=== PATIENT | male | born 1975 | race Caucasian/White ===

== ENCOUNTER 2022-07-01 11:12 | Emergency (ER) | payer MEDICAID, SELFPAY ==
--- NOTE | ~2022-07-01 | XR_ITS ---
EXAMINATION: XR RIBS, RIGHT CLINICAL INFORMATION: Injury rule out fracture. COMPARISON: None available. TECHNIQUE: 6 views of the right ribs were obtained. FINDINGS: The lungs are well-expanded with dense opacities in both lung bases likely scarring. No consolidation, pneumothorax, or pleural effusion. The cardiomediastinal silhouette and pulmonary vasculature are normal. Osseous structures are unremarkable. Multiple views of bilateral ribs reveal no visible fracture or rib abnormality. XR/XR ribs RT min 3V w CXR1V IMPRESSION: 1. Focal dense opacity in both lower lobes likely scarring or overlapping shadows. No visible rib fracture seen.
[2022-07-01 11:27] VITALS: BP 148/79; PULSE 94; RESP 16; TEMP 36.6; O2SAT 100; BMI 23.5
--- NOTE | 2022-07-01 12:00 | ED_ITS ---
HPI - General Adult General Chief complaint: General Medical Stated complaint: Possible broken rib Time Seen by Provider: 07/01/22 11:27 History of Present Illness HPI narrative: patient complains of right-sided rib pain which is from injury of work when he was reaching for a box high up on a shelf and leaning his right ribs against the shelf and then as he pulled the box towards him he felt a pop in the chest wall in the right ribs and it is painful, no difficulty breathing no other injury no other complaints, no abdominal pain no nausea or vomiting Related Data Previous Rx's Medication Instructions Recorded acetaminophen 500 mg capsule 1,000 mg PO TID PRN pain #30 caps 07/01/22 ibuprofen 600 mg tablet 600 mg PO Q6H PRN pain #20 tabs 07/01/22 Allergies Allergy/AdvReac Type Severity Reaction Status Date / Time Penicillins Allergy Unknown Verified 07/01/22 11:27 [facility] Past Medical History Source: nursing notes reviewed Medical History (Updated 07/02/22 @ 00:01 by Paulie Sahni) Substance use disorder Social History Social History Alcohol intake: never Smoked in Last 30 Days: Yes Use of substances other than those prescribed or required for medical reasons: Yes Substance Use Type: Marijuana Advance Directives: No Advance Directives Information Provided: Yes Physical Exam ED Vital Signs: Vital Signs - 24 hr 07/01/22 14:33 Temperature 98.0 F Pulse Rate 68 Respiratory Rate 18 Blood Pressure 151/90 H Pulse Oximetry 99 Oxygen Delivery Method Room Air BMI result Body Mass Index 23.5 General appearance no acute distress Head is normocephalic atraumatic Neck is supple nontender Respiratory no distress Breath sounds are clear equal and full with no adventitious sounds Chest wall had right anterolateral rib tenderness, skin was normal no ecchymosis no deformity no swelling no crepitus Abdomen is soft and nontender Extremities for range of motion x4 Skin no laceration or rash Neuro no focal deficits Course Course Course Narrative: patient with right rib pain after a sharp popping pain when he was moving a box at work had x-ray that showed no acute injuries, no obvious fractures it did show several bilateral opacities consistent with scarring He is given a note for his job for a few days and will follow with [facility] for work related injury Discharge Plan Discharge Clinical Impression: Rib injury Patient Disposition: Home, Self-Care Additional Instructions: the painful injury at work may have been a pulled muscle in the chest wall, or it could be a small rib fracture too small to be seen on x-ray Usually this will get better in a reasonable amount of time on its own Use Tylenol or Motrin as needed For work related injury if needed follow with work [facility] for any further evaluation or care Return any time any worse condition or any concerns Prescriptions: New ibuprofen 600 mg tablet 600 mg PO Q6H PRN (Reason: pain) Qty: 20 0RF acetaminophen 500 mg capsule 1,000 mg PO TID PRN (Reason: pain) Qty: 30 0RF Referrals: [facility] [Provider Group] ( rib injury at work) Stand Alone Forms: Work/School Release Interventions: ED Discharge Assessment Last Done: 07/01/22 14:40 Discharge Date/Time: 07/01/22 14:40
--- NOTE | 2022-07-01 13:00 | PC.NURSE ---
pt AOX3, reports rib pain after moving a crate at work. VS. awaiting xray
--- NOTE | 2022-07-01 14:00 | PC.NURSE ---
patient a&ox3, c/o 11/24 rt rib pain, xray performed, call garcia within reach, vss, will continue to monitor.
[2022-07-01 14:33] VITALS: BP 151/90; PULSE 68; RESP 18; TEMP 36.7; O2SAT 99
== END 2022-07-01 14:40 | disposition home or self-care (01) ==
PROVIDERS: Emergency Provider Emergency Medicine
DX: R07.81 Pleurodynia (principal)
CPT/HCPCS: 71101; 99283; 99284